=== PATIENT | male | born 1970 | race Two or more races ===

== ENCOUNTER 2018-04-10 18:49 | Emergency (ER) | payer SELFPAY ==
[~2018-04-10] VITALS: Ht 162.6 cm; Wt 72.6 kg
[2018-04-10 18:48] VITALS: BP 126/76
--- NOTE | 2018-04-10 19:02 | Emergency Room Report ---
History of Present Illness General Chief Complaint: Alcohol Intoxication Source: Patient, EMS Present Illness HPI Patient brought in for drinking too much. Paramedics found him in the grass. There is no evidence of any seizure or trauma. There were called by concerned bystanders. The patient smells of alcohol and admits to drinking alcohol. They performed an Accu-Chek that was normal in the field. Patient is unsteady on his feet and they brought him to our facility for further evaluation and observation. Patient denies suicidal ideation. He also denies pain or cough. Allergies: Coded Allergies: UNABLE TO ASSESS (Unverified , 04/10/18) Patient History Past Medical History: see triage record Social History: Reports: alcohol use Reviewed Nursing Documentation: PMH: Agreed; PSxH: Agreed Nursing Documentation-PMH Past Medical History: No Stated History Review of Systems All Other Systems: limited Physical Exam Vital Signs Date Time Temp Pulse Resp B/P (MAP) Pulse Ox O2 Delivery O2 Flow Rate FiO2 04/10/18 18:39 208.2 106 98 97.9 04/10/18 18:39 18 139/99 Room Air Sp02 EP Interpretation: reviewed, normal General Appearance: well appearing, no apparent distress, other - dishevelled Head: normocephalic Eyes: bilateral eye PERRL, bilateral eye Scleral Injection, bilateral eye other - discharge from both eyes, greenish with some erythema ENT: moist mucus membranes Neck: supple Respiratory: lungs clear, normal breath sounds Cardiovascular #1: regular rate, rhythm Cardiovascular #2: 2+ radial (R) Gastrointestinal: normal inspection, normal bowel sounds, non tender, no mass, non-distended Musculoskeletal: back normal, gait/station normal, normal range of motion Neurologic: alert, other - ataxic and nystagmus, oriented - X2 Psychiatric: no suicidal/homicidal ideation Skin: normal inspection, warm/dry, abrasions - R hand Medical Decision Making Diagnostic Impression: Primary Impression: Acute alcoholic intoxication Qualified Codes: F10.929 - Alcohol use, unspecified with intoxication, unspecified Additional Impression: Bacterial conjunctivitis ER Course Patient with alleged alcohol intoxication. No evidence of head trauma. Ataxic. Taking oral fluids. Denies SI. No labs indicated at this time. Will re-evaluate when more sober. Patient sleeping. When awake, joking. Still ataxic. Bleph gtts prescribed. Signed out to Dr. Reis. Last Vital Signs Date Time Temp Pulse Resp B/P (MAP) Pulse Ox O2 Delivery O2 Flow Rate FiO2 04/10/18 22:52 98.5 97 16 126/73 96 Room Air 98.5 Status: improved Scripts Sulfacetamide Sodium (BLEPH-10) 5 Ml Drops 2 DROP OP Q6HR, #10 ML Prov: Philip Abdi M.D. 04/10/18 Philip Abdi M.D. Apr 10, 2018 19:02
[2018-04-10] MEDS ORDERED: BLEPH-105 ML OP (20:12)
[2018-04-10 22:43] VITALS: BP 126/73
[2018-04-10 22:52] VITALS: BP 126/73
== END 2018-04-10 22:53 | disposition home or self-care (01) ==
LOC: EDBD 18:49 → EMR 20:16
DX: F10.129 Alcohol abuse with intoxication, unspecified (principal); H10.89 Other conjunctivitis; B96.89 Other specified bacterial agents as the cause of diseases classified elsewhere
CPT/HCPCS: 99283